=== PATIENT | female | born 1990 | race Caucasian/White ===

== ENCOUNTER 2021-05-02 17:38 | Emergency (ER) | payer OTHER | END 2021-05-02 18:50 | disposition home or self-care (01) | LOC: FER 17:38 | DX: S92.311A Displaced fracture of first metatarsal bone, right foot, initial encounter for closed fracture (principal); W01.0XXA Fall on same level from slipping, tripping and stumbling without subsequent striking against object, initial encounter; Y92.009 Unspecified place in unspecified non-institutional (private) residence as the place of occurrence of the external cause | CPT/HCPCS: 73630 ==

== ENCOUNTER 2021-10-24 18:15 | Emergency (ER) | payer OTHER ==
[2021-10-24 19:21] LABS: CORONAVIRUS 2019 SARS-COV-2 NEGATIVE (NEGATIVE); INFLUENZA A NAA NEGATIVE (NEGATIVE)
== END 2021-10-24 19:55 | disposition home or self-care (01) ==
LOC: FER 18:15
PROVIDERS: Nurse Practitioner Family
DX: B34.9 Viral infection, unspecified (principal); Z20.822 Contact with and (suspected) exposure to COVID-19
CPT/HCPCS: 99283; U0002